=== PATIENT | male | born 1945 | race Caucasian/White ===

== ENCOUNTER 2018-05-05 06:47 | Day surgery (SDC) | payer MEDICARE, OTHER ==
[~2018-05-05 06:47] MED LIST: Sodium Chloride 0.9% 1,000 ML IV SCH
[2018-05-05] MEDS ORDERED: Propofol 200 MG/20 ML SDV ONE ×2 (08:46)
[2018-05-05] MEDS ORDERED: Midazolam 1 MG/ML 2 ML SDV ONE (08:46)
[2018-05-05] MEDS ORDERED: fentaNYL 100 MCG/2 ML SDV ONE (08:47)
[2018-05-05] MEDS ORDERED: Lidocaine 2% 5 ML SDV ONE (08:47)
--- NOTE | 2018-05-05 09:01 | PCM.PREANE ---
Preanesthetic Assessment - Anesthesia/Transfusion/Family Hx Anesthesia History: Prior Anesthesia Without Reaction Family History of Anesthesia Reaction: No Transfusion History: No Prior Transfusion(s) - Review of Systems General: No Symptoms Pulmonary: Other (smokes 1 ppk per day for five years, CPAP machine for EPI ( noncompliant)) Cardiovascular: Other (Has atrial fibrillation (took digoxin this am), has high blood pressure (took lisinopril this am), denies chest pain and AR, MET > 4) Gastrointestinal: Other (obese) Neurological: No Symptoms (on anticoagulation warfarin, last dose on Tuesday. INR , Dr. Duron aware) - Physical Assessment NPO Status Date: 05/04/18 NPO Status Time: 23:00 O2 Sat by Pulse Oximetry: 96 Respiratory Rate: 18 Vital Signs: Last Vital Signs Temp 97.9 F 05/05/18 07:25 Pulse 76 05/05/18 07:25 Resp 18 05/05/18 07:25 BP 155/84 H 05/05/18 07:25 Pulse Ox 96 05/05/18 07:25 Height: 5 ft 10 in Weight: 102.965 kg ASA Class: 3 Mental Status: Alert & Oriented x3 Airway Class: Mallampati = 3 Dentition: Reports: Hallwood(s) (poor dentation), Broken Tooth/Teeth Thyro-Mental Finger Breadths: 2 Mouth Opening Finger Breadths: 2 (small mouth) ROM/Head Extension: Full Lungs: Clear to Auscultation - Lab Values: Laboratory Last Values INR 1.31 05/05/18 07:28 - Allergies Allergies/Adverse Reactions: Allergies Allergy/AdvReac Type Severity Reaction Status Date / Time No Known Allergies Allergy Verified 05/02/18 14:04 - Blood Blood Available: No Product(s) Available: None - Anesthesia Plan Pre-Op Medication Ordered: None - Acknowledgements Anesthesia Type Planned: MAC Pt an Appropriate Candidate for the Planned Anesthesia: Yes Alternatives and Risks of Anesthesia Discussed w Pt/Guardian: Yes Pt/Guardian Understands and Agrees with Anesthesia Plan: Yes PreAnesthesia Questionnaire HEENT History: Reports: Other (See Below) Other HEENT History: wears glasses Cardiovascular History: Reports: Afib, High Cholesterol, Hypertension Respiratory History: Reports: Sleep Apnea Other Respiratory History: uses CPAP Gastrointestinal History: Reports: Colon Polyp Musculoskeletal History: Reports: Arthritis Neurological History: Reports: Concussion Endocrine/Metabolic History: Reports: Obesity/BMI 30+ Hematologic History: Reports: Anticoagulation Therapy Other Hematologic History: Last dose of Warfarin on Apr.07 - Past Surgical History Head Surgeries/Procedures: Reports: None GI Surgical History: Reports: Colonoscopy Musculoskeletal Surgical History: Reports: ORIF Other Musculoskeletal Surgeries/Procedures:: ORIF left ankle - has hardware - SUBSTANCE USE Smoking Status *Q: Never Smoker Recreational Drug Use History: No - HOME MEDS Home Medications: Home Meds Ascorbic Acid/Bioflavonoids [Vit C-Bioflavonoids SA] 500 mg PO DAILY 04/08/15 [ History] Digoxin 250 mcg PO QAM 04/08/15 [History] Labetalol HCl [Labetalol] 300 mg PO BID 04/08/15 [History] Lisinopril 40 mg PO QAM 04/08/15 [History] Magnesium Oxide 500 mg PO BID 04/08/15 [History] Avenal-3S/DHA/Epa/Fish Oil [Avenal-3 Fish Oil 1,000 mg Sfgl] 1 cap PO DAILY [History] Potassium Chloride [Klor-Con M20] 20 meq PO TID 04/08/15 [History] Simvastatin [Zocor] 20 mg PO DAILY 04/08/15 [History] Triamterene/Hydrochlorothiazid [Triamterene-HCTZ 37.5-25 MG] 1 tab PO BID [History] Warfarin Sodium [Jantoven] 0.5 mg PO DAILY 05/02/18 [History] Warfarin Sodium [Jantoven] 4 mg PO DAILY 05/02/18 [History] - CURRENT (IN HOUSE) MEDS Current Meds: Current Medications Sodium Chloride (Normal Saline) 1,000 mls @ 125 mls/hr IV ASDIRECTED ARIA Discontinued Medications Fentanyl (Sublimaze) Confirm Administered Dose 100 mcg .ROUTE .STK-MED ONE Stop: 05/05/18 08:48 Lidocaine (Xylocaine-Mpf 2%) Confirm Administered Dose 5 ml .ROUTE .STK-MED ONE Stop: 05/05/18 08:48 Midazolam HCl (Versed 1 Mg/Ml) Confirm Administered Dose 2 mg .ROUTE .STK-MED ONE Stop: 05/05/18 08:47 Propofol (Diprivan 20 Ml) Confirm Administered Dose 200 mg .ROUTE .STK-MED ONE Stop: 05/05/18 08:47 Propofol (Diprivan 20 Ml) Confirm Administered Dose 200 mg .ROUTE .STK-MED ONE Stop: 05/05/18 08:47
[2018-05-05] MEDS ORDERED: Lactated Ringers 1,000 ML IV SCH (09:30)
--- NOTE | 2018-05-05 09:34 | PCM.OPNOTE ---
- General Post-Op/Procedure Note Date of Surgery/Procedure: 05/05/18 Operative Procedure(s): Colonoscopy with cold ascending colon polypectomy Pre Op Diagnosis: Personal history of colon polyps Post-Op Diagnosis: Ascending colon polyp. Sigmoid diverticulosis. Anesthesia Technique: MAC (ASA III) Primary Surgeon: Frandy Duron Industrial [employer] Professor: Aide Emmanuel Condition: Good Free Text/Narrative:: DICTATION [id number] CPT CODE [id number]
[2018-05-05 10:11] VITALS: BP 151/85
--- NOTE | 2018-05-05 13:04 | OR ---
SURGEON: Frandy Duron M.D. DATE OF PROCEDURE: 05/05/2018 OPERATION PERFORMED: Colonoscopy with cold ascending colon polypectomy. ANESTHESIA: MAC. ASA CLASSIFICATION: III. PREOPERATIVE DIAGNOSES: 1. Personal history of colon polyps. 2. Diverticulosis. POSTOPERATIVE DIAGNOSES: 1. Ascending colon polyp. 2. Sigmoid diverticulosis. DESCRIPTION OF PROCEDURE: The patient was taken to the endoscopy room and positioned on the endoscopy table in the left lateral decubitus position. Time-out was called for appropriate identification of the patient and procedure. Monitored anesthesia care was provided. The colonoscope was inserted into the rectum and advanced with minimal difficulty to the cecum where the colonoscope was retroflexed to visualize the ascending colon from below. The colonoscope was then straightened and slowly withdrawn. Cecum was identified by internal landmarks and external pressure. One polyp was encountered in the proximal ascending colon and removed with the cold biopsy forceps. The remainder of the ascending colon, hepatic flexure, transverse colon, splenic flexure, and descending colon showed no tumors, polyps, diverticula, or angiodysplastic changes. Scattered diverticular changes were noted in the sigmoid colon. No polyps were encountered. The colonoscope was withdrawn to the rectum and retroflexed. No tumors or polyps were seen, and there were no acute hemorrhoidal changes. The colonoscope was straightened, the rectum aspirated, and the colonoscope removed. The patient tolerated the procedure well and was taken to recovery room in stable condition. ANABELL PILLAI /[id number]
== END 2018-05-05 10:35 | disposition home or self-care (01) ==
LOC: MW.SDS 06:47
PROVIDERS: ATTEND Surgery
DX: Z12.11 Encounter for screening for malignant neoplasm of colon (principal); D12.2 Benign neoplasm of ascending colon; K57.30 Diverticulosis of large intestine without perforation or abscess without bleeding; I10 Essential (primary) hypertension; F17.210 Nicotine dependence, cigarettes, uncomplicated; E66.9 Obesity, unspecified; Z68.32 Body mass index [BMI] 32.0-32.9, adult; I48.91 Unspecified atrial fibrillation; G47.33 Obstructive sleep apnea (adult) (pediatric); E78.00 Pure hypercholesterolemia, unspecified; Z86.010 Personal history of colon polyps; Z79.01 Long term (current) use of anticoagulants; Z79.899 Other long term (current) drug therapy; Z99.89 Dependence on other enabling machines and devices
CPT/HCPCS: 36415; 45380; 85610; J2001; J2250; J2704; J3010; J7120

== ENCOUNTER 2021-05-22 08:03 | Day surgery (SDC) | payer MEDICARE, OTHER ==
[2021-05-22] MEDS ORDERED: Midazolam 1 MG/ML 2 ML SDV ONE (09:37)
[2021-05-22] MEDS ORDERED: fentaNYL 100 MCG/2 ML SDV ONE (09:37)
[2021-05-22] MEDS ORDERED: Propofol 200 MG/20 ML SDV ONE ×2 (09:37→10:36)
[2021-05-22] MEDS ORDERED: Lactated Ringers 1,000 ML IV SCH (10:45)
[2021-05-22 11:19] VITALS: BP 149/70; PULSE 62
== END 2021-05-22 11:50 | disposition home or self-care (01) ==
LOC: MW.SDS 08:03
PROVIDERS: ATTEND Surgery
DX: Z12.11 Encounter for screening for malignant neoplasm of colon (principal); D12.2 Benign neoplasm of ascending colon; D12.8 Benign neoplasm of rectum; I48.91 Unspecified atrial fibrillation; I10 Essential (primary) hypertension; E78.00 Pure hypercholesterolemia, unspecified; G47.33 Obstructive sleep apnea (adult) (pediatric); F17.210 Nicotine dependence, cigarettes, uncomplicated; Z79.899 Other long term (current) drug therapy; Z98.890 Other specified postprocedural states; Z79.01 Long term (current) use of anticoagulants
CPT/HCPCS: 45380; 82947; J2704; J3010; J7030; 00812; 88305; 99100; J2250